=== PATIENT | male | born 1955 | race Caucasian/White ===

== ENCOUNTER 2021-04-13 12:13 | Emergency (ER) | payer MEDICARE ==
[~2021-04-13] VITALS: Ht 182.9 cm; Wt 52.2 kg
[2021-04-13] MEDS ORDERED: FLUOXETINE HCL20 M1 PO (12:39)
[2021-04-13] MEDS ORDERED: AZITHROMYCIN500 MG PO (12:39)
[2021-04-13] MEDS ORDERED: LISINOPRIL5 MG PO (12:40)
[2021-04-13] MEDS ORDERED: PREDNISONE 10 M10 MG PO (12:40)
[2021-04-13] MEDS ORDERED: TRELEGY INH (12:42)
[2021-04-13 13:09] LABS: ABSOLUTE EOSINOPHILS 0.1 thou/uL (0.0-0.7); ABSOLUTE LYMPHOCYTES 2.2 thou/uL (0.8-5.3); ABSOLUTE MONOCYTES 0.7 thou/uL (0.0-1.2); ABSOLUTE NEUTROPHILS 6.2 thou/uL (1.6-8.1); BASOPHILS 0.3 %; EOSINOPHILS 0.6 %; HEMATOCRIT 49.1 % (42.0-52.0); HEMOGLOBIN 16.5 gm/dL (14.0-18.0); LYMPHOCYTES 23.7 %; MCH 32.4 pg (26.0-34.0); MCHC 33.7 g/dL (28.0-37.0); MCV 96.2 fL (80.0-100.0); MONOCYTES 7.8 %; NUCLEATED RBCS 0 /100WBC; PLATELET COUNT* 224 thou/uL (150-400); POLYS 67.6 %; RDW-CV 13.8 % (10.5-14.5); WBC 9.2 thou/uL (4.0-11.0)
[2021-04-13 13:18] LABS: CALCIUM 9.4 mg/dL (8.5-10.1); CREATININE 0.9 mg/dL (0.6-1.3); POTASSIUM 3.7 mmol/L (3.5-5.1)
[2021-04-13 13:28] LABS: ALBUMIN 4.2 g/dL (3.4-5.0); TOTAL BILIRUBIN 1.4 mg/dL (<0.1-1.0); TOTAL PROTEIN 7.3 g/dL (6.4-8.2)
[2021-04-13 14:20] LABS: INFLUENZA A ANTIGEN Negative (Negative); INFLUENZA B ANTIGEN Negative (Negative)
[2021-04-13] MEDS ORDERED: LEVOFLOXACIN500 MG PO (15:00)
[2021-04-13 15:17] VITALS: BP 146/95
--- NOTE | 2021-04-13 15:38 | EKG ---
[place] [address] ELECTROCARDIOGRAM REPORT Name: NICOLE ESPINOZA JR Room: [facility]#: [id number] Admission: 04/13/21 Attend Phys: Discharge: 04/13/21 Date of : 53 Date of Service: 04/13/21 1306 Report #: [id number] THIS REPORT FOR: //name// [facility] ED Test Date: 2021-04-13 Test Time: 13:06:23 Pat Name: NICOLE ESPINOZA Department: Room: Gender: Crayon Sawyer: [facility] : 1955 Requested By: Torrie Carcamo Order Number: [id number] MD: Rene Yusuf Measurements Intervals [place] Rate: 70 P: 85 [place]: 133 QRS: -97 QRSD: 121 T: 37 QT: 387 QTc: 418 Interpretive Statements Sinus rhythm Right atrial enlargement RBBB and LAFB No previous ECG available for comparison Electronically Signed On 04-13-2021 15:38:10 ROUTE DELIVERY SUPERVISOR by Rene Yusuf [email or web address] <ELECTRONICALLY SIGNED> By: Rene Yusuf MD, [facility] 04/13/21 1538 1306 1306 Rene Yusuf MD, FAC /EPI
== END 2021-04-13 15:17 | disposition home or self-care (01) ==
LOC: M.ERS 12:13
PROVIDERS: Nurse Practitioner Family
DX: J44.1 Chronic obstructive pulmonary disease with (acute) exacerbation (principal); Z20.822 Contact with and (suspected) exposure to COVID-19; I10 Essential (primary) hypertension; F17.200 Nicotine dependence, unspecified, uncomplicated; Z79.899 Other long term (current) drug therapy; Z79.1 Long term (current) use of non-steroidal anti-inflammatories (NSAID); Z79.891 Long term (current) use of opiate analgesic

== ENCOUNTER 2021-04-17 13:33 | Emergency (ER) | payer MEDICARE ==
[~2021-04-17] VITALS: Ht 182.9 cm; Wt 53.5 kg
[~2021-04-17 13:33] MED LIST: AZITHROMYCIN500 MG PO; FLUOXETINE HCL20 M1 PO; LEVOFLOXACIN500 MG PO; LISINOPRIL5 MG PO; PREDNISONE 10 M10 MG PO; TRELEGY INH
[2021-04-17] MEDS ORDERED: PREDNISONE 20 M20 M1 PO (14:16)
[2021-04-17 15:04] VITALS: BP 152/90
--- NOTE | 2021-04-18 09:57 | EKG ---
[place] [address] ELECTROCARDIOGRAM REPORT Name: OLGANICOLE Mcgraw JR Room[facility]#: [id number] Admission: 04/17/21 Attend Phys: Discharge: 04/17/21 Date of : 53 Date of Service: 04/17/21 1342 Report #: [id number] THIS REPORT FOR: //name// [facility] ED Test Date: 2021-04-17 Test Time: 13:42:24 Pat Name: NICOLE ESPINOZA Department: Room: Gender: Rehab Consultant: : 1955 Requested By: Jose G Erickson Order Number: [id number] MD: Rene Yusuf Measurements Intervals [place] Rate: 91 P: 84 [place]: 123 QRS: -114 QRSD: 118 T: 28 QT: 350 QTc: 431 Interpretive Statements Sinus rhythm Biatrial enlargement Incomplete RBBB and LAFB Minimal ST elevation, lateral leads Artifact in lead(s) I,II,III,aVR,aVL,V5,V6 and baseline wander in lead(s) II,aVF Compared to ECG 04/13/2021 13:06:23 no change Electronically Signed On 04-18-2021 9:57:34 CLOTH BLEACHING SUPERVISOR by Rene Yusuf [email or web address] <ELECTRONICALLY SIGNED> By: Rene Yusuf MD, [facility] 04/18/21 0957 134 1342 Rene Yusuf MD, [facility] /EPI
== END 2021-04-17 15:07 | disposition home or self-care (01) ==
LOC: M.ERS 13:33
DX: J44.1 Chronic obstructive pulmonary disease with (acute) exacerbation (principal); I10 Essential (primary) hypertension; Z79.899 Other long term (current) drug therapy

== ENCOUNTER 2021-04-20 07:22 | Emergency (ER) | payer MEDICARE ==
[~2021-04-20] VITALS: Ht 182.9 cm; Wt 53.5 kg
[~2021-04-20 07:22] MED LIST changes: +PREDNISONE 20 M20 M1 PO
[2021-04-20 08:21] LABS: HEMATOCRIT 50.5 % (42.0-52.0); MCH 32.2 pg (26.0-34.0); MCHC 33.6 g/dL (28.0-37.0); RBC 5.26 mil/uL (4.50-6.00); RDW-CV 13.8 % (10.5-14.5); WBC 12.1 thou/uL (4.0-11.0)
[2021-04-20 08:37] LABS: CALCIUM 8.9 mg/dL (8.5-10.1); POTASSIUM 3.6 mmol/L (3.5-5.1)
[2021-04-20] MEDS ORDERED: HALCION0.125 MG PO ×2 (08:57→10:52)
[2021-04-20 09:04] VITALS: BP 109/89
--- NOTE | 2021-04-20 10:03 | EKG ---
[place] [address] ELECTROCARDIOGRAM REPORT Name: NICOLE ESPINOZA Lucien JR Room: [facility]#: [id number] Admission: 04/20/21 Attend Phys: Discharge: 04/20/21 Date of : 53 Date of Service: 04/20/21813 Report #: [id number] THIS REPORT FOR: //name// [facility] ED Test Date: 2021-04-20 Test Time: 08:14:07 Pat Name: NICOLE ESPINOZA Department: Room: Gender: Dance Studio Manager: [facility] : 1955 Requested By: Crow An Order Number: [id number] MD: Juan Woodall Measurements Intervals [place] Rate: 86 P: 84 [place]: 131 QRS: -94 QRSD: 107 T: 32 QT: 358 QTc: 429 Interpretive Statements Sinus rhythm Biatrial enlargement Incomplete RBBB and LAFB Right ventricular hypertrophy possible Baseline wander in lead(s) I,III,aVL,aVF Compared to ECG 04/17/2021 13:42:24 ST (T wave) deviation no longer present Electronically Signed On 04-20-2021 10:03:43 SENIOR SALES EXECUTIVE by Juan Woodall [email or web address] <ELECTRONICALLY SIGNED> By: Juan Woodall MD, [facility] 04/20/21 1003 3 3 Juan Woodall MD, [facility] /EPI
== END 2021-04-20 09:05 | disposition home or self-care (01) ==
LOC: M.ERS 07:22
PROVIDERS: Emergency Medicine Emergency Medical Services
DX: F41.9 Anxiety disorder, unspecified (principal); G47.00 Insomnia, unspecified; I10 Essential (primary) hypertension; Z79.899 Other long term (current) drug therapy